=== PATIENT | female | born 1990 | race Caucasian/White ===

== ENCOUNTER → 2016-09-21 | Outpatient (CLI) | payer OTHER, SELFPAY ==
[2016-10-08 17:06] LABS: HPV 16 Not Detected (NOTDET); HPV 18 Not Detected (NOTDET)
== END ==
LOC: MW.CHOBGYN 08:58
PROVIDERS: ATTEND Obstetrics & Gynecology
DX: R87.620 Atypical squamous cells of undetermined significance on cytologic smear of vagina (ASC-US) (principal); R87.811 Vaginal high risk human papillomavirus (HPV) DNA test positive; Z98.890 Other specified postprocedural states
CPT/HCPCS: 87624; G0145

== ENCOUNTER 2019-04-22 16:18 | Inpatient (IN) | payer BC ==
[2019-04-22] MEDS ORDERED: Methylergonovine 0.2 MG/1 ML Amp IM PRN (18:04)
[2019-04-22] MEDS ORDERED: Tranexamic Acid 1,000 MG in Sodium Chloride 0.9% 100 ML IV PRN (18:04)
[2019-04-22] MEDS ORDERED: Water For Irrigation,Sterile 1,000 ML Container IRR PRN (18:04)
[2019-04-22] MEDS ORDERED: Sodium Chloride 0.9% 10 ML Syringe FLUSH PRN (18:04)
[2019-04-22] MEDS ORDERED: Sodium Chloride 0.9% 2.5 ML Syringe FLUSH PRN (18:04)
[2019-04-22] MEDS ORDERED: Misoprostol 200 MCG Tab PO PRN (18:04)
[2019-04-22] MEDS ORDERED: Carboprost Tromethamine 250 MCG/1 ML Amp IM PRN (18:04)
[2019-04-22] MEDS ORDERED: Lidocaine 1% 50 ML MDV INJECT PRN (18:04)
[2019-04-22] MEDS ORDERED: Ondansetron 4 MG/2 ML SDV IVPUSH PRN (18:04)
[2019-04-22] MEDS ORDERED: Nalbuphine 10 MG/1 ML Vial IVPUSH PRN (18:04)
[2019-04-22] MEDS ORDERED: Butorphanol 1 MG/ML SDV IVPUSH PRN (18:04)
[2019-04-22] MEDS ORDERED: Sodium Chloride 0.9% 10 ML SDV IV PRN (18:04)
[2019-04-22] MEDS ORDERED: Oxytocin/0.9 % Sodium Chloride 30 UNIT/500 ML BAG IV SCH (18:15)
[2019-04-22] MEDS: Lactated Ringers 1,000 ML IV SCH ×2 (18:22→19:16)
--- NOTE | 2019-04-22 19:08 | PCM.PREANE ---
Preanesthetic Assessment - Anesthesia/Transfusion/Family Hx Anesthesia History: Prior Anesthesia Without Reaction Family History of Anesthesia Reaction: No Transfusion History: No Prior Transfusion(s) - Review of Systems General: No Symptoms Pulmonary: No Symptoms Cardiovascular: No Symptoms Gastrointestinal: No Symptoms Neurological: No Symptoms Other: Reports: None - Physical Assessment Height: 5 ft 1 in Weight: 73.936 kg ASA Class: 2 Mental Status: Alert & Oriented x3 Airway Class: Mallampati = 2 Dentition: Reports: Normal Dentition Thyro-Mental Finger Breadths: 3 Mouth Opening Finger Breadths: 3 ROM/Head Extension: Full Lungs: Clear to Auscultation, Normal Respiratory Effort Cardiovascular: Regular Rate, Regular Rhythm - Lab Values: Laboratory Last Values WBC 12.80 K/uL (4.0-11.0) H 04/22/19 18:21 RBC 4.80 M/uL (4.30-5.90) 04/22/19 18:21 Hgb 13.1 g/dL (12.0-16.0) 04/22/19 18:21 Hct 40.5 % (36.0-46.0) 04/22/19 18:21 MCV 84.4 fL (80.0-98.0) 04/22/19 18:21 MCH 27.3 pg (27.0-32.0) 04/22/19 18:21 MCHC 32.3 g/dL (31.0-37.0) 04/22/19 18:21 RDW Std Deviation 41.5 fl (28.0-62.0) 04/22/19 18:21 RDW Coeff of Sadia 14 % (11.0-15.0) 04/22/19 18:21 Plt Count 213 K/uL (150-400) 04/22/19 18:21 MPV 11.90 fL (7.40-12.00) 04/22/19 18:21 Nucleated RBC % 0.0 /100WBC 04/22/19 18:21 Nucleated RBCs # 0 K/uL 04/22/19 18:21 - Allergies Allergies/Adverse Reactions: Allergies Allergy/AdvReac Type Severity Reaction Status Date / Time No Known Allergies Allergy Verified 04/22/19 16:20 - Acknowledgements Anesthesia Type Planned: Epidural Pt an Appropriate Candidate for the Planned Anesthesia: Yes Alternatives and Risks of Anesthesia Discussed w Pt/Guardian: Yes Pt/Guardian Understands and Agrees with Anesthesia Plan: Yes PreAnesthesia Questionnaire HEENT History: Reports: None Cardiovascular History: Reports: None Respiratory History: Reports: None Gastrointestinal History: Reports: GERD Genitourinary History: Reports: None INSPECTOR TYPE History: Reports: , Spontaneous : 2 Para: 0 LMP (Approximate): Musculoskeletal History: Reports: None Neurological History: Reports: Seizure, Other (See Below) Other Neuro History: seizures exacerbated by pain; has not had seizure since she was 16 Psychiatric History: Reports: None Endocrine/Metabolic History: Reports: Diabetes, Gestational Hematologic History: Reports: None Immunologic History: Reports: None Oncologic (Cancer) History: Reports: None Dermatologic History: Reports: Other (See Below) Other Dermatologic History: currently has a cold sore - Past Surgical History GI Surgical History: Reports: Appendectomy Female Surgical History: Reports: Cervical Cryotherapy, LEEP Endocrine Surgical History: Reports: None Neurological Surgical History: Reports: None Dermatological Surgical History: Reports: None - SUBSTANCE USE Smoking Status *Q: Never Smoker Recreational Drug Use History: No - HOME MEDS Home Medications: Home Meds Acyclovir 400 mg PO DAILY 04/22/19 [History] Magnesium Oxide/Mag AA Chelate [Magnesium] 300 mg PO DAILY 04/22/19 [History] PNV95/Ferrous Fumarate/FA [ Tablet] 1 tab PO DAILY 04/22/19 [History] - CURRENT (IN HOUSE) MEDS Current Meds: Current Medications Butorphanol Tartrate (Stadol) 1 mg IVPUSH Q1H PRN PRN Reason: Pain Carboprost Tromethamine (Hemabate Ds) 250 mcg IM ASDIRECTED PRN PRN Reason: Post Hemorrhage Tranexamic Acid 1,000 mg/ (Sodium Chloride) 110 mls @ 660 mls/hr IV ONETIME PRN PRN Reason: Bleeding Lactated Ringer's (Ringers, Lactated) 1,000 mls @ 150 mls/hr IV ASDIRECTED [facility]ÉL[facility] Oxytocin/Sodium Chloride (Oxytocin 30 Unit/500 Ml-Ns) 30 unit in 500 mls @ 999 mls/hr IV TITRATE [facility] Lidocaine HCl (Xylocaine 1%) 50 ml INJECT ONETIME PRN PRN Reason: Laceration repair Methylergonovine Maleate (Methergine) 0.2 mg IM ASDIRECTED PRN PRN Reason: Post Hemorrhage Misoprostol (Cytotec) 200 mcg PO ONETIME PRN PRN Reason: Post Hemorrhage Nalbuphine HCl (Nubain) 10 mg IVPUSH Q1H PRN PRN Reason: Pain (severe 7-10) Ondansetron HCl (Zofran) 4 mg IVPUSH Q6H PRN PRN Reason: Nausea/Vomiting Sodium Chloride (Saline Flush) 10 ml FLUSH ASDIRECTED PRN PRN Reason: Keep Vein Open Sodium Chloride (Saline Flush) 2.5 ml FLUSH ASDIRECTED PRN PRN Reason: Keep Vein Open Sodium Chloride (Normal Saline) 10 ml IV ASDIRECTED PRN PRN Reason: IV Use Sterile Water (Sterile Water For Irrigation) 1,000 ml IRR ASDIRECTED PRN PRN Reason: delivery
[2019-04-22] MEDS ORDERED: Dextrose 5% in Water 1,000 ML IV SCH (19:15)
[2019-04-23] MEDS: Lactated Ringers 1,000 ML IV SCH (04:30)
[2019-04-23] MEDS ORDERED: Acetaminophen 500 MG Tab PO PRN (05:28)
[2019-04-23] MEDS ORDERED: Ibuprofen 400 MG Tab PO PRN (05:28)
[2019-04-23] MEDS ORDERED: Lanolin 100% Cream 7 GM Tube TOP PRN (05:28)
[2019-04-23] MEDS ORDERED: oxyCODONE 5 MG Tab PO PRN (05:28)
[2019-04-23] MEDS ORDERED: Benzocaine/Menthol 20%-0.5% Spray 78 GM Cannister TOP PRN (05:28)
[2019-04-23] MEDS ORDERED: Bisacodyl 10 MG Supp RECTAL PRN (05:28)
[2019-04-23] MEDS ORDERED: Witch Hazel Medicated Pads 40/Jar TOP PRN (05:28)
[2019-04-23] MEDS ORDERED: Docusate Sodium 100 MG Cap PO PRN (05:28)
--- NOTE | 2019-04-23 05:35 | PCM.DEL ---
L & D Note - General Info Date of Service: 04/23/19 Mother's Due Date: 04/25/19 - Delivery Note Labor: Spontaneous, Augmented by Oxytocin Delivery Outcome: Livebirth Infant Delivery Method: Spontaneous Vaginal Delivery-Single Presentation: Left Occiput Anterior (JORDAN) Nuchal Cord: None Anesthesia Type: None Amniotic Fluid Description: Clear Episiotomy Type: None Laceration: 1st Degree Suture type: Other (monocyrl ) Suture size: 2-0 Cord: 3 Vessels Estimated Blood Loss: 200 Resuscitation Needed: No Score 1 min: 8 Score 5 min: 8 Delivery Comments (Free Text/Narrative):: Live male delivered at 445am , 8/8 , weight 3090g - General Info Date of Service: 04/23/19 - Patient Data Weight - Most Recent: 73.936 kg I&O - Last 24 Hours: Intake & Output 04/22/19 04/22/19 04/23/19 14:59 22:59 06:59 Output Total 1999 Balance -1999 Lab Results Last 24 Hours: Laboratory Results - last 24 hr 04/22/19 04/22/19 04/22/19 Range/Units 18:21 18:21 19:14 WBC 12.80 H (4.0-11.0) K/uL RBC 4.80 (4.30-5.90) M/uL Hgb 13.1 (12.0-16.0) g/dL Hct 40.5 (36.0-46.0) % MCV 84.4 (80.0-98.0) fL MCH 27.3 (27.0-32.0) pg MCHC 32.3 (31.0-37.0) g/dL RDW Std Deviation 41.5 (28.0-62.0) fl RDW Coeff of Sadia 14 (11.0-15.0) % Plt Count 213 (150-400) K/uL MPV 11.90 (7.40-12.00) fL Nucleated RBC % 0.0 /100WBC Nucleated RBCs # 0 K/uL POC Glucose 62 (60-110) mg/dL Blood Type A POSITIVE Antibody Screen NEGATIVE 04/22/19 04/22/19 04/22/19 Range/Units 19:48 21:48 23:03 WBC (4.0-11.0) K/uL RBC (4.30-5.90) M/uL Hgb (12.0-16.0) g/dL Hct (36.0-46.0) % MCV (80.0-98.0) fL MCH (27.0-32.0) pg MCHC (31.0-37.0) g/dL RDW Std Deviation (28.0-62.0) fl RDW Coeff of Sadia (11.0-15.0) % Plt Count (150-400) K/uL MPV (7.40-12.00) fL Nucleated RBC % /100WBC Nucleated RBCs # K/uL POC Glucose 103 72 150 H (60-110) mg/dL Blood Type Antibody Screen 04/23/19 04/23/19 04/23/19 Range/Units 00:07 01:19 02:23 WBC (4.0-11.0) K/uL RBC (4.30-5.90) M/uL Hgb (12.0-16.0) g/dL Hct (36.0-46.0) % MCV (80.0-98.0) fL MCH (27.0-32.0) pg MCHC (31.0-37.0) g/dL RDW Std Deviation (28.0-62.0) fl RDW Coeff of Asdia (11.0-15.0) % Plt Count (150-400) K/uL MPV (7.40-12.00) fL Nucleated RBC % /100WBC Nucleated RBCs # K/uL POC Glucose 109 90 109 (60-110) mg/dL Blood Type Antibody Screen 04/23/19 Range/Units 03:18 WBC (4.0-11.0) K/uL RBC (4.30-5.90) M/uL Hgb (12.0-16.0) g/dL Hct (36.0-46.0) % MCV (80.0-98.0) fL MCH (27.0-32.0) pg MCHC (31.0-37.0) g/dL RDW Std Deviation (28.0-62.0) fl RDW Coeff of Sadia (11.0-15.0) % Plt Count (150-400) K/uL MPV (7.40-12.00) fL Nucleated RBC % /100WBC Nucleated RBCs # K/uL POC Glucose 86 (60-110) mg/dL Blood Type Antibody Screen Med Orders - Current: Current Medications Acetaminophen (Tylenol Extra Strength) 500 mg PO Q4H PRN PRN Reason: Pain Acetaminophen (Tylenol Extra Strength) 1,000 mg PO Q4H PRN PRN Reason: Pain Benzocaine/Menthol (Dermoplast Pain Relief 20%-0.5% [place]) 78 gm TOP ASDIRECTED PRN PRN Reason: Perineal Comfort Measure Bisacodyl (Dulcolax) 10 mg RECTAL ONETIME PRN PRN Reason: Constipation Butorphanol Tartrate (Stadol) 1 mg IVPUSH Q1H PRN PRN Reason: Pain Carboprost Tromethamine (Hemabate Ds) 250 mcg IM ASDIRECTED PRN PRN Reason: Post Hemorrhage Docusate Sodium (Colace) 100 mg PO BID PRN PRN Reason: Constipation Emollient Ointment (Lansinoh Hpa) 0 gm TOP ASDIRECTED PRN PRN Reason: Sore Nipples Tranexamic Acid 1,000 mg/ (Sodium Chloride) 110 mls @ 660 mls/hr IV ONETIME PRN PRN Reason: Bleeding Lactated Ringer's (Ringers, Lactated) 1,000 mls @ 150 mls/hr IV ASDIRECTED [facility] Last Admin: 04/23/19 04:30 Dose: 500 mls/hr Oxytocin/Sodium Chloride (Oxytocin 30 Unit/500 Ml-Ns) 30 unit in 500 mls @ 999 mls/hr IV TITRATE [facility] Last Admin: 04/23/19 04:46 Dose: 999 mls/hr Dextrose/Water (Dextrose 5% In Water) 1,000 mls @ 100 mls/hr IV ASDIRECTED [facility] Insulin Human Regular 100 unit (/ Sodium Chloride) 100 mls @ 1 mls/hr IV TITRATE [facility]; Protocol Ibuprofen (Motrin) 400 mg PO Q4H PRN PRN Reason: Pain Ibuprofen (Motrin) 800 mg PO Q6H PRN PRN Reason: Pain Lidocaine HCl (Xylocaine 1%) 50 ml INJECT ONETIME PRN PRN Reason: Laceration repair Methylergonovine Maleate (Methergine) 0.2 mg IM ASDIRECTED PRN PRN Reason: Post Hemorrhage Misoprostol (Cytotec) 200 mcg PO ONETIME PRN PRN Reason: Post Hemorrhage Nalbuphine HCl (Nubain) 10 mg IVPUSH Q1H PRN PRN Reason: Pain (severe 7-10) Ondansetron HCl (Zofran) 4 mg IVPUSH Q6H PRN PRN Reason: Nausea/Vomiting Oxycodone HCl (Oxycodone) 5 mg PO Q2H PRN PRN Reason: Pain Sodium Chloride (Saline Flush) 10 ml FLUSH ASDIRECTED PRN PRN Reason: Keep Vein Open Sodium Chloride (Saline Flush) 2.5 ml FLUSH ASDIRECTED PRN PRN Reason: Keep Vein Open Sodium Chloride (Normal Saline) 10 ml IV ASDIRECTED PRN PRN Reason: IV Use Sterile Water (Sterile Water For Irrigation) 1,000 ml IRR ASDIRECTED PRN PRN Reason: delivery Last Admin: 04/23/19 04:45 Dose: 1,000 ml Witch Kaity (Tucks) 1 pad TOP ASDIRECTED PRN PRN Reason: comfort care Discontinued Medications Fentanyl/Bupivacaine HCl (Rnmdflix-Ejrzq-Ti 2 Mcg/Ml-0.125%) Confirm Administered Dose 100 mls @ as directed .ROUTE .STK-MED ONE Stop: 04/22/19 19:17 Fentanyl/Bupivacaine HCl (Bqlskxop-Ysvyw-Ha 2 Mcg/Ml-0.125%) Confirm Administered Dose 100 mls @ as directed .ROUTE .STK-MED ONE Stop: 04/23/19 02:57 - Problem List & Annotations (1) Vaginal delivery SNOMED Code(s): 274332430 Code(s): O80 - ENCOUNTER FOR FULL-TERM UNCOMPLICATED DELIVERY Status: Acute Current Visit: Yes - Problem List Review Problem List Initiated/Reviewed/Updated: Yes - My Orders Last 24 Hours: My Active Orders 04/22/19 16:23 Non Stress Test [RC] PER UNIT ROUTINE Up ad Renetta [RC] ASDIRECTED Vaginal Exam [RC] Click to Edit Vital Signs [RC] PER UNIT ROUTINE 04/22/19 18:04 Patient Status [ADT] Routine Heart Tones [RC] CONTINUOUS May Shower [RC] ASDIRECTED Notify Provider [RC] PRN Butorphanol [Stadol] 1 mg IVPUSH Q1H PRN Carboprost Tromethamine [Hemabate DS] 250 mcg IM ASDIRECTED PRN Lidocaine 1% [Xylocaine 1%] 50 ml INJECT ONETIME PRN Methylergonovine [Methergine] 0.2 mg IM ASDIRECTED PRN Nalbuphine [Nubain] 10 mg IVPUSH Q1H PRN Ondansetron [Zofran] 4 mg IVPUSH Q6H PRN Sodium Chloride 0.9% [Normal Saline] 10 ml IV ASDIRECTED PRN Sodium Chloride 0.9% [Saline Flush] 10 ml FLUSH ASDIRECTED PRN Sodium Chloride 0.9% [Saline Flush] 2.5 ml FLUSH ASDIRECTED PRN Tranexamic Acid [Cyklokapron] 1,000 mg Sodium Chloride 0.9% [Normal Saline] 100 ml IV ONETIME Water For Irrigation,Sterile [Sterile Water for Irrigation] 1,000 ml IRR ASDIRECTED PRN miSOPROStol [Cytotec] 200 mcg PO ONETIME PRN Peripheral IV Insertion Adult [OM.PC] Routine 04/22/19 18:15 Lactated Ringers [Ringers, Lactated] 1,000 ml IV ASDIRECTED Oxytocin/0.9 % Sodium Chloride [Oxytocin 30 Unit/500 ML-NS] 30 unit in 500 ml IV TITRATE 04/22/19 19:15 Dextrose 5% in Water 1,000 ml IV ASDIRECTED Insulin Regular, Human [NovoLIN R] 100 unit Sodium Chloride 0.9% [Normal Saline] 99 ml IV TITRATE 04/22/19 19:20 Blood Glucose Check, Bedside [RC] Q1H 04/23/19 05:28 Acetaminophen [Tylenol Extra Strength] 1,000 mg PO Q4H PRN Acetaminophen [Tylenol Extra Strength] 500 mg PO Q4H PRN Benzocaine/Menthol [Dermoplast Pain Relief 20%-0.5% [place]] 78 gm TOP ASDIRECTED PRN Bisacodyl [Dulcolax] 10 mg RECTAL ONETIME PRN Docusate Sodium [Colace] 100 mg PO BID PRN Ibuprofen [Motrin] 400 mg PO Q4H PRN Ibuprofen [Motrin] 800 mg PO Q6H PRN Lanolin [Lansinoh HPA] See Dose Instructions TOP ASDIRECTED PRN Witch Kaity [Tucks] 1 pad TOP ASDIRECTED PRN oxyCODONE 5 mg PO Q2H PRN 04/23/19 05:29 Patient Status [ADT] Routine May Shower [RC] ASDIRECTED Up ad Renetta [RC] ASDIRECTED Vital Signs [RC] PER UNIT ROUTINE Assess Lochia [WOMSER] Per Unit Routine Assess Uterine Involution [WOMSER] Per Unit Routine Peripheral IV Discontinue [OM.PC] Routine 04/24/19 05:11 HEMOGLOBIN/HEMATOCRIT,HH [HEME] Timed
[2019-04-23] MEDS: Acetaminophen 500 MG Tab PO PRN ×2 (07:09→17:13)
--- NOTE | 2019-04-23 10:45 | OR ---
SURGEON: JAYSON FAYE DATE OF PROCEDURE: 04/23/2019 PREOPERATIVE DIAGNOSIS: A 28-year-old G 2, P-0-0-1-0 at 39 weeks 5 days, admitted in early labor. POSTOPERATIVE DIAGNOSIS: A 28-year-old G 2, P-0-0-1-0 at 39 weeks 5 days, admitted in early labor. PROCEDURE: Normal spontaneous vaginal delivery and repair of first-degree vaginal laceration. ESTIMATED BLOOD LOSS: 200. ANESTHESIA: Epidural. NOTABLE FINDING: A live male delivered at 4:45 a.m. score is 8 and 8. Weight is 3090 g. BRIEF HISTORY: The patient is a 28-year-old G2, P-0-0-1-0 at 39 weeks 5 days, who came in complaining of contractions. When she came, she was about 3 cm. She was allowed to ambulate and she made change to 5 cm dilated. The patient was requesting epidural which she recieved. She had artificial rupture of membranes. The patient made normal cervical change and became fully dilated and was encouraged to push. The patient pushed for about 2 hours and seemed like the uterine contractions were spacing out. Pitocin was started. DESCRIPTION OF PROCEDURE: With good pushing effort, she delivered the head. There was a cord around the neck. After delivery of the head, the body was delivered and was placed on the maternal abdomen. Delayed cord clamping was observed. The cord blood gases were obtained. Placenta was delivered via controlled cord traction. The perineum was inspected. There was noted to be a first-degree vaginal laceration which was repaired with 2-0 Monocryl. The uterus was then massaged. Perineum was noted to be intact and bleeding was minimal. All instrument and pad counts were correct x2. The patient tolerated the procedure well and was left in the Labor and Delivery room in stable condition. JORGE L VICENTE /[id number] MTDEris
--- NOTE | 2019-04-23 11:52 | PCM48HPAN ---
Post Anesthesia Note - EVALUATION WITHIN 48HRS OF ANESTHETIC Vital Signs in Normal Range: Yes Patient Participated in Evaluation: Yes Respiratory Function Stable: Yes Airway Patent: Yes Cardiovascular Function Stable: Yes Hydration Status Stable: Yes Pain Control Satisfactory: Yes Nausea and Vomiting Control Satisfactory: Yes Mental Status Recovered: Yes
[2019-04-23] MEDS: Ibuprofen 800 MG Tab PO PRN (12:08)
[2019-04-24] MEDS: Ibuprofen 800 MG Tab PO PRN (00:09)
[2019-04-24] MEDS: Acetaminophen 500 MG Tab PO PRN (04:31)
--- NOTE | 2019-04-24 08:44 | PCM.PNPP ---
- General Info Date of Service: 04/24/19 Functional Status: Reports: Pain Controlled, Tolerating Diet, Ambulating, Urinating - Review of Systems General: Reports: Fatigue. Denies: Fever, Weakness Pulmonary: Denies: Shortness of Breath Cardiovascular: Denies: Chest Pain, Palpitations Gastrointestinal: Denies: Constipation Genitourinary: Denies: Dysuria, Frequency, Flank Pain Musculoskeletal: Reports: No Symptoms, Neck Pain Skin: Reports: No Symptoms Neurological: Reports: No Symptoms Psychiatric: Reports: No Symptoms - General Info Date of Service: 04/24/19 - Patient Data Vital Signs - Most Recent: Last Vital Signs Temp 36.3 C 04/24/19 04:38 Pulse 74 04/24/19 04:38 Resp 17 04/24/19 04:38 BP 115/71 04/24/19 04:38 Pulse Ox 96 04/24/19 04:38 Weight - Most Recent: 73.936 kg Lab Results - Last 24 Hours: Laboratory Results - last 24 hr 04/24/19 Range/Units 05:10 Hgb 11.2 L (12.0-16.0) g/dL Hct 34.3 L (36.0-46.0) % Med Orders - Current: Current Medications Acetaminophen (Tylenol Extra Strength) 500 mg PO Q4H PRN PRN Reason: Pain Last Admin: 04/24/19 00:10 Dose: 500 mg Acetaminophen (Tylenol Extra Strength) 1,000 mg PO Q4H PRN PRN Reason: Pain Last Admin: 04/24/19 04:31 Dose: 1,000 mg Benzocaine/Menthol (Dermoplast Pain Relief 20%-0.5% [place]) 78 gm TOP ASDIRECTED PRN PRN Reason: Perineal Comfort Measure Last Admin: 04/23/19 07:18 Dose: 1 canister Bisacodyl (Dulcolax) 10 mg RECTAL ONETIME PRN PRN Reason: Constipation Butorphanol Tartrate (Stadol) 1 mg IVPUSH Q1H PRN PRN Reason: Pain Carboprost Tromethamine (Hemabate Ds) 250 mcg IM ASDIRECTED PRN PRN Reason: Post Hemorrhage Docusate Sodium (Colace) 100 mg PO BID PRN PRN Reason: Constipation Emollient Ointment (Lansinoh Hpa) 0 gm TOP ASDIRECTED PRN PRN Reason: Sore Nipples Tranexamic Acid 1,000 mg/ (Sodium Chloride) 110 mls @ 660 mls/hr IV ONETIME PRN PRN Reason: Bleeding Lactated Ringer's (Ringers, Lactated) 1,000 mls @ 150 mls/hr IV ASDIRECTED [facility] Last Admin: 04/23/19 04:30 Dose: 500 mls/hr Oxytocin/Sodium Chloride (Oxytocin 30 Unit/500 Ml-Ns) 30 unit in 500 mls @ 999 mls/hr IV TITRATE [facility] Last Admin: 04/23/19 04:46 Dose: 999 mls/hr Dextrose/Water (Dextrose 5% In Water) 1,000 mls @ 100 mls/hr IV ASDIRECTED [facility] Insulin Human Regular 100 unit (/ Sodium Chloride) 100 mls @ 1 mls/hr IV TITRATE [facility]; Protocol Ibuprofen (Motrin) 400 mg PO Q4H PRN PRN Reason: Pain Ibuprofen (Motrin) 800 mg PO Q6H PRN PRN Reason: Pain Last Admin: 04/24/19 00:09 Dose: 800 mg Lidocaine HCl (Xylocaine 1%) 50 ml INJECT ONETIME PRN PRN Reason: Laceration repair Methylergonovine Maleate (Methergine) 0.2 mg IM ASDIRECTED PRN PRN Reason: Post Hemorrhage Misoprostol (Cytotec) 200 mcg PO ONETIME PRN PRN Reason: Post Hemorrhage Nalbuphine HCl (Nubain) 10 mg IVPUSH Q1H PRN PRN Reason: Pain (severe 7-10) Ondansetron HCl (Zofran) 4 mg IVPUSH Q6H PRN PRN Reason: Nausea/Vomiting Oxycodone HCl (Oxycodone) 5 mg PO Q2H PRN PRN Reason: Pain Sodium Chloride (Saline Flush) 10 ml FLUSH ASDIRECTED PRN PRN Reason: Keep Vein Open Sodium Chloride (Saline Flush) 2.5 ml FLUSH ASDIRECTED PRN PRN Reason: Keep Vein Open Sodium Chloride (Normal Saline) 10 ml IV ASDIRECTED PRN PRN Reason: IV Use Sterile Water (Sterile Water For Irrigation) 1,000 ml IRR ASDIRECTED PRN PRN Reason: delivery Last Admin: 04/23/19 04:45 Dose: 1,000 ml Junior Briceno ([place]) 1 pad TOP ASDIRECTED PRN PRN Reason: comfort care Last Admin: 04/23/19 07:18 Dose: 1 tub Discontinued Medications Fentanyl/Bupivacaine HCl (Fkswsaso-Ascpl-Um 2 Mcg/Ml-0.125%) Confirm Administered Dose 100 mls @ as directed .ROUTE .STK-MED ONE Stop: 04/22/19 19:17 Last Admin: 04/23/19 08:58 Dose: Not Given Fentanyl/Bupivacaine HCl (Emjtkdid-Wknso-So 2 Mcg/Ml-0.125%) Confirm Administered Dose 100 mls @ as directed .ROUTE .STK-MED ONE Stop: 04/23/19 02:57 Last Admin: 04/23/19 08:59 Dose: Not Given - Interaction Support Person: Significant Other - Recovery Exam Fundal Tone: Firm Fundal Level: 1 Fingerbreadths Below Umbilicus Fundal Placement: Midline Lochia Amount: Scant Lochia Color: Rubra/Red Perineum Description: Edematous Episiotomy/Laceration: Approximated Bladder Status: Voiding Urinary Elimination: Voided - Exam General: Alert, Oriented Lungs: Normal Respiratory Effort Cardiovascular: Regular Rate, Regular Rhythm GI/Abdominal Exam: Normal Bowel Sounds, Soft Extremities: Pedal Edema (trace). No: Marybeth's Sign Skin: Warm, Dry, Intact Neurological: No New Focal Deficit Psy/Mental Status: Alert, Normal Affect, Normal Mood - Problem List & Annotations (1) Vaginal delivery SNOMED Code(s): 560497086 Code(s): O80 - ENCOUNTER FOR FULL-TERM UNCOMPLICATED DELIVERY Status: Acute Current Visit: Yes - Problem List Review Problem List Initiated/Reviewed/Updated: Yes - My Orders Last 24 Hours: My Active Orders 04/24/19 08:41 Ready for Discharge [RC] PER UNIT ROUTINE - Assessment Assessment:: PPD 1 status post Gestational diabetes - Plan Plan:: Patient doing well overall--discharge to home today. Follow up at [facility] 6 weeks with 75 gm GTT. Check glucose at home intermittently and call if greater than 130 consistently. Discharge instructions reviewed. Infection and bleeding warnings reviewed.
[2019-04-24 09:21] VITALS: BP 129/72; PULSE 94
== END 2019-04-24 14:30 | disposition home or self-care (01) | DRG 560 ==
LOC: MW.OBCHECK 16:18 → MW.OB 16:19 → MW.OBCHECK 18:04 → OBSVTOIN 04-23 04:45 → MW.OB 04-23 14:11
PROVIDERS: ADMIT Obstetrics & Gynecology; ATTEND Obstetrics & Gynecology
PROC: 10E0XZZ Delivery of Products of Conception, External Approach (ICD-10-PCS; principal; 2019-04-23)
PROC: 10907ZC Drainage of Amniotic Fluid, Therapeutic from Products of Conception, Via Natural or Artificial Opening (ICD-10-PCS; 2019-04-23)
PROC: 0HQ9XZZ Repair Perineum Skin, External Approach (ICD-10-PCS; 2019-04-23)
PROC: 3E0R3BZ Introduction of Anesthetic Agent into Spinal Canal, Percutaneous Approach (ICD-10-PCS; 2019-04-23)
DX: O24.420 Gestational diabetes mellitus in childbirth, diet controlled (principal); Z3A.39 39 weeks gestation of pregnancy; O70.0 First degree perineal laceration during delivery; O69.81X0 Labor and delivery complicated by cord around neck, without compression, not applicable or unspecified; Z37.0 Single live birth; Z79.899 Other long term (current) drug therapy; Z90.49 Acquired absence of other specified parts of digestive tract
CPT/HCPCS: 01967; 36415; 51702; 59025; 59409; 82962; 85014; 85018; 85027; 86850; 86900; 86901; A9270-GY; J2590; J7120

== ENCOUNTER 2020-12-21 08:25 | Emergency (ER) | payer BC, OTHER ==
[2020-12-21 08:53] VITALS: BP 113/70; PULSE 69
--- NOTE | 2020-12-21 09:02 | EDM.PDOC ---
ED HPI GENERAL MEDICAL PROBLEM - General Chief Complaint: Allergic Reaction Stated Complaint: Alllergic reaction Time Seen by Provider: 12/21/20 08:35 Source of Information: Reports: Patient History Limitations: Reports: No Limitations - History of Present Illness INITIAL COMMENTS - FREE TEXT/NARRATIVE: 30-year-old female presents for atraumatic swelling and pain to right eye x2 days. She notes that she slept over at her [id number]'s house and is concerned maybe she is allergic to something in the pillowcase. She is not having any crusting discharge or changes in vision. She denies any fevers or any other symptoms. She has tried Dee and Benadryl without relief. Right Eye Pain Score (Numeric/FACES): 2 - Related Data Allergies Allergy/AdvReac Type Severity Reaction Status Date / Time No Known Allergies Allergy Verified 12/21/20 08:44 Home Meds: Home Meds . 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; has not had seizure since she was 16 Psychiatric History: Reports: None Endocrine/Metabolic History: Reports: Diabetes, Gestational Hematologic History: Reports: None Immunologic History: Reports: None Oncologic (Cancer) History: Reports: None Dermatologic History: Reports: Other (See Below) Other Dermatologic History: currently has a cold sore - Infectious Disease History Infectious Disease History: Reports: None - Past Surgical History Head Surgeries/Procedures: Reports: None HEENT Surgical History: Reports: None Cardiovascular Surgical History: Reports: None Respiratory Surgical History: Reports: None GI Surgical History: Reports: Appendectomy Female Surgical History: Reports: Cervical Cryotherapy, LEEP Endocrine Surgical History: Reports: None Neurological Surgical History: Reports: None Musculoskeletal Surgical History: Reports: None Dermatological Surgical History: Reports: None Social & Family History - Family History Family Medical History: No Pertinent Family History OBGYN: Reports: Neurological: Reports: Seizure Endocrine/Metabolic: Reports: Diabetes, type II, Other (See Below) Other Endocrine/Metabolic Family History: thyroid disease Oncologic: Reports: Breast, Other (See Below) Other Oncologic Family History: brain tumor - Tobacco Use Tobacco Use Status *Q: Never Tobacco User - Caffeine Use Caffeine Use: Reports: None - Recreational Drug Use Recreational Drug Use: No ED ROS ALLERGIC REACTION - Review of Systems Review Of Systems: Comprehensive ROS is negative, except as noted in HPI. ED EXAM GENERAL NO PERIP PULSE - Physical Exam Exam: See Below Exam Limited By: No Limitations General Appearance: Alert, WD/WN, No Apparent Distress Eye Exam: Bilateral Eye: EOMI, PERRL, Other (swelling of R upper and lower eyelids without crusting/discharge) Ears: Normal External Exam Nose: Normal Inspection Throat/Mouth: Normal Voice, No Airway Compromise Head: Atraumatic, Normocephalic Neck: Normal Inspection Respiratory/Chest: No Respiratory Distress, No Accessory Muscle Use Cardiovascular: Normal Peripheral Pulses Extremities: Normal Inspection Neurological: Alert, Normal Cognition, Normal Gait Psychiatric: Normal Affect, Normal Mood Course - Vital Signs Last Recorded V/S: Last Vital Signs Temp 97.6 F 12/21/20 08:44 Pulse 69 12/21/20 08:44 Resp 18 12/21/20 08:44 BP 113/70 12/21/20 08:44 Pulse Ox 98 12/21/20 08:44 Departure - Departure Time of Disposition: 08:59 Disposition: Home, Self-Care 01 Condition: Good Clinical Impression: Allergic blepharitis Qualifiers: Laterality: right Qualified Code(s): H01.113 - Allergic dermatitis of right eye, unspecified eyelid - Discharge Information Instructions: Blepharitis Referrals: Jacinto Brito MD [Primary Care Provider] - Additional Instructions: The following information is given to patients seen in the emergency department who are being discharged to home. This information is to outline your options for follow-up care. We provide all patients seen in our emergency department with a follow-up referral. The need for follow-up, as well as the timing and circumstances, are variable depending upon the specifics of your emergency department visit. If you don't have a primary care physician on staff, we will provide you with a referral. We always advise you to contact your personal physician following an emergency department visit to inform them of the circumstance of the visit and for follow-up with them and/or the need for any referrals to a consulting specialist. The emergency department will also refer you to a specialist when appropriate. This referral assures that you have the opportunity for follow-up care with a specialist. All of these measure are taken in an effort to provide you with optimal care, which includes your follow-up. Under all circumstances we always encourage you to contact your private physician who remains a resource for coordinating your care. When calling for follow-up care, please make the office aware that this follow-up is from your recent emergency room visit. If for any reason you are refused follow-up, please contact the [facility] Emergency Department at and asked to speak to the emergency department charge nurse. Please follow up with your primary care physician. If you do not have a primary care physician, see below: [facility] [address] [place] [id number] [facility] [address] [place] [id number] [facility] [address] [place] [id number] Sepsis Event Note (ED) - Evaluation Sepsis Screening Result: No Definite Risk - Focused Exam Vital Signs: Vital Signs Temp Pulse Resp BP Pulse Ox 12/21/20 08:44 97.6 F 69 18 113/70 98
== END 2020-12-21 09:14 | disposition home or self-care (01) ==
LOC: MW.ED 08:25
DX: H01.113 Allergic dermatitis of right eye, unspecified eyelid (principal)
CPT/HCPCS: 99282; 99283

== ENCOUNTER 2021-12-30 19:30 | Inpatient (IN) | payer BC ==
[2021-12-30] MEDS ORDERED: Lidocaine 1% 50 ML MDV INJECT PRN (20:56)
[2021-12-30] MEDS ORDERED: Carboprost Tromethamine 250 MCG/1 ML Amp IM PRN (20:56)
[2021-12-30] MEDS ORDERED: Misoprostol 200 MCG Tab PO PRN (20:56)
[2021-12-30] MEDS ORDERED: Water For Irrigation,Sterile 1,000 ML Container IRR PRN (20:56)
[2021-12-30] MEDS ORDERED: Terbutaline 1 MG/ML SDV SUBCUT PRN (20:56)
[2021-12-30] MEDS ORDERED: Tranexamic Acid 1,000 MG in Sodium Chloride 0.9% 100 ML IV PRN (20:56)
[2021-12-30] MEDS ORDERED: Misoprostol 25 MCG (1/4 of 100 MCG) Tab VAG PRN ×2 (20:56)
[2021-12-30] MEDS ORDERED: Butorphanol 1 MG/ML SDV IVPUSH PRN (20:56)
[2021-12-30] MEDS ORDERED: Methylergonovine 0.2 MG/1 ML Amp IM PRN (20:56)
[2021-12-30] MEDS ORDERED: Oxytocin/0.9 % Sodium Chloride 30 UNIT/500 ML BAG IV SCH ×2 (21:00)
[2021-12-30] MEDS ORDERED: Sodium Chloride 0.9% 10 ML Syringe FLUSH PRN (21:01)
[2021-12-30] MEDS ORDERED: Ondansetron 4 MG/2 ML SDV IVPUSH PRN (21:01)
[2021-12-30] MEDS ORDERED: Sodium Chloride 0.9% 2.5 ML Syringe FLUSH PRN (21:01)
[2021-12-30] MEDS ORDERED: Sodium Chloride 0.9% 20 ML SDV IV PRN (21:01)
[2021-12-30] MEDS: Lactated Ringers 1,000 ML IV SCH (21:58)
[2021-12-31] MEDS ORDERED: Ropivacaine/PF 400 MG/200 ML PCA ONE (02:35)
[2021-12-31] MEDS ORDERED: ePHEDrine 50 MG/ML SDV IVPUSH PRN (03:02)
[2021-12-31] MEDS ORDERED: Ropivacaine HCl/PF 400 MG in Premix Bag 1 BAG EPIDUR SCH (03:15)
[2021-12-31] MEDS: Lactated Ringers 1,000 ML IV SCH (06:05)
[2021-12-31] MEDS ORDERED: Tranexamic Acid 1,000 MG in Sodium Chloride 0.9% 100 ML IV PRN (07:39)
[2021-12-31] MEDS ORDERED: Docusate Sodium 100 MG Cap PO PRN (07:39)
[2021-12-31] MEDS ORDERED: Acetaminophen 500 MG Tab PO PRN (07:39)
[2021-12-31] MEDS ORDERED: Ibuprofen 400 MG Tab PO PRN (07:39)
[2021-12-31] MEDS ORDERED: Benzocaine/Menthol 20%-0.5% Spray 78 GM Cannister TOP PRN (07:39)
[2021-12-31] MEDS ORDERED: Methylergonovine 0.2 MG/1 ML Amp IM PRN (07:39)
[2021-12-31] MEDS ORDERED: Bisacodyl 10 MG Supp RECTAL PRN (07:39)
[2021-12-31] MEDS ORDERED: Witch Hazel Medicated Pads 40/Jar TOP PRN (07:39)
[2021-12-31] MEDS ORDERED: Lanolin 100% Cream 7 GM Tube TOP PRN (07:39)
[2021-12-31] MEDS: Acetaminophen 500 MG Tab PO PRN ×2 (15:17→21:29)
[2021-12-31] MEDS: Ibuprofen 800 MG Tab PO PRN (19:02)
[2022-01-01] MEDS: Ibuprofen 800 MG Tab PO PRN (05:20)
[2022-01-01 06:03] LABS: POTASSIUM,K 4.1 mmol/L (3.5-5.1)
[2022-01-01 07:53] VITALS: BP 111/70; PULSE 78
[2022-01-01] MEDS ORDERED: Measles, Mumps & Rubella Vaccine 0.5 ML SDV SUBCUT ONE (09:31)
== END 2022-01-01 11:35 | disposition home or self-care (01) | DRG 560 ==
LOC: MW.OBCHECK 19:30 → MW.OB 19:31 → MW.OBCHECK 20:42 → MW.OB 20:56 → MW.OBCHECK 20:56 → OBSVTOIN 12-31 07:18 → MW.OB 12-31 13:16
PROVIDERS: ADMIT Obstetrics & Gynecology; ATTEND Obstetrics & Gynecology
PROC: 10E0XZZ Delivery of Products of Conception, External Approach (ICD-10-PCS; principal; 2021-12-31)
PROC: 3E033VJ Introduction of Other Hormone into Peripheral Vein, Percutaneous Approach (ICD-10-PCS; 2021-12-31)
PROC: 3E0R3BZ Introduction of Anesthetic Agent into Spinal Canal, Percutaneous Approach (ICD-10-PCS; 2021-12-31)
PROC: 00HU33Z Insertion of Infusion Device into Spinal Canal, Percutaneous Approach (ICD-10-PCS; 2021-12-31)
DX: O24.420 Gestational diabetes mellitus in childbirth, diet controlled (principal); Z37.0 Single live birth; O99.62 Diseases of the digestive system complicating childbirth; K21.9 Gastro-esophageal reflux disease without esophagitis; Z20.822 Contact with and (suspected) exposure to COVID-19; Z3A.40 40 weeks gestation of pregnancy
CPT/HCPCS: 36415; 51702; 59025; 59409; 80048; 82803; 82947; 85014; 85018; 85027; 86592; 86850; 86900; 86901; A9270-GY; J2590; J2795; J7120; U0002